=== PATIENT | male | born 1965 | race Caucasian/White ===

== ENCOUNTER 2016-07-13 10:44 | Inpatient (IN) | payer OTHER, MEDICAID ==
[2016-07-13] VITALS (7 sets, daily range): BP systolic 126–145; BP diastolic 70–81; PULSE 62–95; RESP 15–20; TEMP 97.7–98.9; O2SAT 98–99
[~2016-07-13] VITALS: Ht 180.3 cm; Wt 80.0 kg
[2016-07-13] MEDS ORDERED: SODIUM CHLOR 0.9% 1000 ML INJ 1,000 ML IV SCH (11:12)
[2016-07-13] MEDS ORDERED: MORPHINE SULFATE 4 MG/ML INJ IV PUSH ONE ×2 (11:15→13:30)
[2016-07-13] MEDS ORDERED: SODIUM CHLORIDE 0.9% FLUSH 5 ML FLUSH IVF PRN ×2 (11:15→15:15)
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
--- NOTE | 2016-07-13 11:47 | RADRPT ---
EXAM DATE/TIME: 07/13/2016 11:27 [facility] COMPARISON: No previous studies available for comparison. INDICATIONS : Short of breath. MEDICAL HISTORY : None. SURGICAL HISTORY : None. ENCOUNTER: Initial ACUITY: 1 day PAIN SCORE: 9/10 LOCATION: Bilateral lower chest FINDINGS: A single view of the chest demonstrates the lungs to be symmetrically aerated without evidence of mas s, infiltrate or effusion. The cardiomediastinal contours are unremarkable. There is probably an ac segundo right eighth rib fracture. Correlation suggested. CONCLUSION: Possible right eighth rib fracture, negative for pneumothorax. Curt Reed MD FACR on July 13, 2016 at 11:44 Board Certified Radiologist. This report was verified electronically.
[2016-07-13 11:50] LABS: AUTOMATED NEUTROPHIL # 6.6 TH/MM3 (1.8-7.7); BASOPHIL % 0.5 % (0.0-2.0); EOSINOPHIL % 0.3 % (0.0-4.0); HEMATOCRIT 39.1 % (39.0-51.0); HEMO FLAGS DIFF FINAL; LYMPH % 9.7 % (9.0-44.0); LYMPHOCYTE # 0.8 TH/MM3 (1.0-4.8); MEAN CELL VOLUME 92.9 FL (80.0-100.0); MEAN CORPUSCULAR HGB CONC 33.4 % (32.0-36.0); MONO % 5.7 % (0.0-8.0); NEUT % 83.8 % (16.0-70.0); PLATELET COUNT 185 TH/MM3 (150-450); RED CELL DISTRIBUTION WIDTH 13.7 % (11.6-17.2); WHITE BLOOD COUNT 7.9 TH/MM3 (4.0-11.0)
[2016-07-13 11:58] LABS: INTERNATIONAL NORMALIZED RATIO 1.1 RATIO; PROTHROMBIN TIME - PATIENT 11.9 SEC (9.8-11.6)
[2016-07-13 12:06] LABS: BICARBONATE 27.8 MEQ/L (21.0-32.0); POTASSIUM 3.8 MEQ/L (3.5-5.1)
[2016-07-13] MEDS ORDERED: IOHEXOL 350 MG/ML 10 ML VIAL (for RAD DIAG) IV ONE (12:34)
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
[2016-07-13] MEDS ORDERED: ONDANSETRON HCL 4 MG/2 ML VIAL IV PUSH ONE (13:30)
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
[2016-07-13] MEDS ORDERED: CHLORHEXIDINE GLUCONATE 2 % 1 PACK (2 CLOTHS) TOP PRN (15:15)
[2016-07-13] MEDS ORDERED: MISCELLANEOUS NURSING INFORMATION XX SCH (15:15)
[2016-07-13] MEDS ORDERED: SODIUM CHLORIDE 0.9% FLUSH 5 ML FLUSH IV FLUSH PRN (15:15)
[2016-07-13] MEDS ORDERED: ACETAMINOPHEN 325 MG TAB PO PRN (16:00)
[2016-07-13] MEDS ORDERED: RESP: ALBUTEROL 2.5 MG/IPRATROPIUM 0.5 MG NEB (SCH) INH (16:00)
[2016-07-13] MEDS ORDERED: RESP: ALBUTEROL 2.5 MG/IPRATROPIUM 0.5 MG NEB (PRN) INH (16:00)
[2016-07-13] MEDS ORDERED: ENALAPRILAT 1.25 MG/ML VIAL IV PRN (16:00)
[2016-07-13 16:02] LABS: BLOOD, URINE NEG (NEG); COMMENT (UR) CULT NOT INDICATED; CULTURE IF INDICATED CULT NOT INDICATED; GLUCOSE,URINE NEG (NEG); HYALINE CAST, URINE 1 /lpf (RARE); KETONE, URINE 40 mg/dL (NEG); NITRITE,URINE NEG (NEG); PH, URINE 7.5 (5.0-8.5); URINE COLOR YELLOW (YELLW/STRAW)
[2016-07-13] MEDS: METHOCARBAMOL 500 MG TAB PO SCH ×2 (16:27→22:00)
[2016-07-13] MEDS: SODIUM CHLOR 0.9% 1000 ML INJ 1,000 ML IV SCH (16:27)
[2016-07-13] MEDS: ACETAMINOPHEN 1000 MG/100 ML VIAL IV SCH ×2 (17:09→22:00)
[2016-07-13] MEDS: LIDOCAINE HCL 5% PATCH TD SCH (17:12)
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
[2016-07-13] MEDS: SODIUM CHLORIDE 0.9% FLUSH 5 ML FLUSH IV FLUSH SCH (21:00)
[2016-07-13] MEDS: DOCUSATE SODIUM 100 MG CAP PO SCH (21:00)
[2016-07-13] MEDS: REMOVE OLD PATCH T-DERMAL SCH (21:00)
[2016-07-13] MEDS: MAGNESIUM HYDROXIDE SUSP 30 ML CUP PO SCH (21:00)
[2016-07-13] MEDS: FAMOTIDINE 20 MG TAB PO SCH (21:00)
[2016-07-13] MEDS: HYDROmorphone HCL PF 1 MG/ML VIAL IV PUSH PRN (22:00)
[2016-07-13] MEDS: RESP: ALBUTEROL 2.5 MG/IPRATROPIUM 0.5 MG NEB (SCH) NEB ×2 (22:00→23:48)
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
[2016-07-14] VITALS (7 sets, daily range): BP systolic 129–144; BP diastolic 70–80; PULSE 56–66; RESP 12–18; TEMP 97.7–98.8; O2SAT 94–98
[2016-07-14] MEDS: HYDROmorphone HCL PF 1 MG/ML VIAL IV PUSH PRN ×6 (01:21→19:01)
[2016-07-14] MEDS: SODIUM CHLOR 0.9% 1000 ML INJ 1,000 ML IV SCH ×3 (02:00→20:27)
[2016-07-14] MEDS: RESP: ALBUTEROL 2.5 MG/IPRATROPIUM 0.5 MG NEB (SCH) NEB ×4 (03:25→19:44)
[2016-07-14] MEDS: CHLORHEXIDINE GLUCONATE 2 % 1 PACK (2 CLOTHS) TOP SCH (04:00)
[2016-07-14 04:01] LABS: AUTOMATED NEUTROPHIL # 8.2 TH/MM3 (1.8-7.7); BASOPHIL % 0.2 % (0.0-2.0); EOSINOPHIL % 0.5 % (0.0-4.0); HEMATOCRIT 34.7 % (39.0-51.0); HEMO FLAGS DIFF FINAL; LYMPH % 11.6 % (9.0-44.0); LYMPHOCYTE # 1.2 TH/MM3 (1.0-4.8); MEAN CELL VOLUME 93.2 FL (80.0-100.0); MEAN CORPUSCULAR HEMOGLOBIN 32.1 PG (27.0-34.0); MEAN CORPUSCULAR HGB CONC 34.4 % (32.0-36.0); MONO % 6.6 % (0.0-8.0); NEUT % 81.1 % (16.0-70.0); PLATELET COUNT 151 TH/MM3 (150-450); RED BLOOD COUNT 3.73 MIL/MM3 (4.50-5.90); RED CELL DISTRIBUTION WIDTH 13.4 % (11.6-17.2); WHITE BLOOD COUNT 10.1 TH/MM3 (4.0-11.0)
[2016-07-14 04:10] LABS: INTERNATIONAL NORMALIZED RATIO 1.1 RATIO
[2016-07-14 04:29] LABS: ANION GAP 8 MEQ/L (5-15); AST (GOT) 17 U/L (15-37); BICARBONATE 26.5 MEQ/L (21.0-32.0); BLOOD UREA NITROGEN 8 MG/DL (7-18); CHLORIDE 105 MEQ/L (98-107); GLOMERULAR FILTRATION RATE 98 ML/MIN (>89); POTASSIUM 3.7 MEQ/L (3.5-5.1); SODIUM (NA) 139 MEQ/L (136-145)
[2016-07-14 04:32] LABS: ALKALINE PHOSPHATASE 43 U/L (45-117); ALT (GPT) 22 U/L (12-78); CREATINE KINASE 363 U/L (39-308)
[2016-07-14] MEDS: ACETAMINOPHEN 1000 MG/100 ML VIAL IV SCH ×2 (05:32→13:29)
[2016-07-14] MEDS: METHOCARBAMOL 500 MG TAB PO SCH ×3 (05:33→20:24)
[2016-07-14 05:50] LABS: CKMB 1.9 NG/ML (0.5-3.6)
--- NOTE | 2016-07-14 06:33 | RADRPT ---
EXAM DATE/TIME: 07/14/2016 03:20 [facility] COMPARISON: CHEST SINGLE AP, July 13, 2016, 11:27. INDICATIONS : Post trauma. MEDICAL HISTORY : None. SURGICAL HISTORY : None. ENCOUNTER: Subsequent ACUITY: 2 days PAIN SCORE: Non-responsive. LOCATION: Bilateral chest FINDINGS: A single view of the chest demonstrates the lungs to be symmetrically aerated without evidence of mas s, infiltrate or effusion. The cardiomediastinal contours are unremarkable. Osseous structures are intact. CONCLUSION: 1. No acute findings. Mildly tortuous aorta. Minimal subsegmental atelectasis at the lung bases. Nathan Gomez MD on July 14, 2016 at 6:30 Board Certified Radiologist. This report was verified electronically.
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
[2016-07-14] MEDS: FAMOTIDINE 20 MG TAB PO SCH ×2 (08:22→20:24)
[2016-07-14] MEDS: SODIUM CHLORIDE 0.9% FLUSH 5 ML FLUSH IV FLUSH SCH ×2 (08:22→20:29)
[2016-07-14] MEDS: DOCUSATE SODIUM 100 MG CAP PO SCH ×2 (08:22→20:29)
[2016-07-14] MEDS: LIDOCAINE HCL 5% PATCH TD SCH (08:24)
[2016-07-14] MEDS: oxyCODONE/ACETAMINOPHEN 5 MG/325 MG TAB PO PRN ×2 (11:04→20:23)
[2016-07-14] MEDS: ONDANSETRON HCL 4 MG/2 ML VIAL IV PRN ×2 (11:16→19:01)
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
--- NOTE | 2016-07-14 18:11 | RADRPT ---
EXAM DATE/TIME: 07/14/2016 17:38 [facility] COMPARISON: No previous studies available for comparison. INDICATIONS : Trauma. Bilateral upper extremity numbness. MEDICAL HISTORY : None. SURGICAL HISTORY : Tonsillectomy. ENCOUNTER: Initial ACUITY: 2 day PAIN SCORE: 3/10 LOCATION: Paraspinal TECHNIQUE: Multiplanar, multisequence MRI examination of the cervical spine was performed. FINDINGS: VERTEBRAE: Normal vertebral body height. Homogeneous marrow signal. ALIGNMENT: No evidence of subluxation. CORD: Normal configuration and signal. POST FOSSA: The cerebellar tonsils are normal in position. C2-C3: The thecal sac has a normal configuration. There is no evidence of disc herniation or spinal canal s tenosis. The neural foramina are patent bilaterally. C3-C4: The thecal sac has a normal configuration. There is no evidence of disc herniation or spinal canal s tenosis. The neural foramina are patent bilaterally. C4-C5: Minimal broad-based protrusion abuts ventral thecal sac. No canal stenosis The neural foramina are pa tent bilaterally. C5-C6: Mild broad-based protrusion more eccentric to the left abuts the ventral thecal sac. Mild degree of c anal stenosis. There is moderate left-sided and mild right-sided neural foraminal narrowing. C6-C7: Mild broad-based protrusion abuts the ventral thecal sac. No canal stenosis. Severe left-sided and mo derate right-sided neural foraminal narrowing. The neural foramina are patent bilaterally. C7-T1: The thecal sac has a normal configuration. There is no evidence of disc herniation or spinal canal s tenosis. The neural foramina are patent bilaterally. CONCLUSION: 1. Minimal broad-based protrusion at C4-5 without canal stenosis. 2. Mild broad-based protrusion more eccentric to the left at C5-6 causing mild canal stenosis. 3. Mild broad-based protrusion at C6-7 without canal stenosis. 4. Uncovertebral spurring causing neural foraminal narrowing at C5-6 and C6-7 levels as described abo ve. Brock Moore MD on July 14, 2016 at 18:06 Board Certified Radiologist. This report was verified electronically.
--- NOTE | 2016-07-14 18:28 | RADRPT ---
EXAM DATE/TIME: 07/14/2016 17:38 [facility] COMPARISON: CT LUMBAR SPINE W/O CONTRAST, July 13, 2016, 11:58. INDICATIONS : L2 fracture involving the anterior posterior elements. MEDICAL HISTORY : None. SURGICAL HISTORY : Tonsillectomy. ENCOUNTER: Initial ACUITY: 2 day PAIN SCORE: 3/10 LOCATION: Paraspinal TECHNIQUE: There is a mild scoliosis. There are degenerative joint changes of the lower facets. FINDINGS: The most caudal appearing lumbar vertebra is numbered as L5. Again noted is a fracture deformity invo lving the L2 vertebral body with invagination of the superior endplate and fracture lines involving t he anterior portion of vertebral body. There is marrow edema extending to the upper half of the verte bral body. The vertebral bodies are intact. On the axial images there is an annular disc bulge at L1-2 with flattening the anterior thecal sac. T here is edema surrounding the L2 vertebral body with edema extending into both psoas muscles right gr eater than left. The subtle fractures seen on CT extending into both pedicles and involving the left transverse process are not well-visualized. There is minimal retropulsion of the posterior superior a spect of the L2 vertebral body. CONCLUSION: 1. Moderate compression fracture deformity of L2 again noted with mild retropulsion of the posterior superior aspect of the vertebral body. There is annular disc bulge at L1-2 with flattening of the the ana sac. The known extension into the pedicles and left transverse process are not well-visualized on MRI. Please see CT for further details. 2. No other vertebral fractures are identified. Justice Fabian MD on July 14, 2016 at 18:20 Board Certified Radiologist. This report was verified electronically.
[2016-07-14] MEDS: REMOVE OLD PATCH T-DERMAL SCH (20:29)
[2016-07-14] MEDS: MAGNESIUM HYDROXIDE SUSP 30 ML CUP PO SCH (20:29)
[2016-07-15] VITALS (8 sets, daily range): BP systolic 121–148; BP diastolic 66–84; PULSE 57–99; RESP 16–18; TEMP 97.7–99.7; O2SAT 95–99
[2016-07-15] MEDS: oxyCODONE/ACETAMINOPHEN 5 MG/325 MG TAB PO PRN ×5 (00:10→19:38)
[2016-07-15] MEDS: HYDROmorphone HCL PF 1 MG/ML VIAL IV PUSH PRN ×4 (03:07→23:22)
[2016-07-15] MEDS: ONDANSETRON HCL 4 MG/2 ML VIAL IV PRN ×2 (03:13→10:20)
[2016-07-15] MEDS: RESP: ALBUTEROL 2.5 MG/IPRATROPIUM 0.5 MG NEB (SCH) NEB ×4 (03:33→20:42)
[2016-07-15] MEDS: CHLORHEXIDINE GLUCONATE 2 % 1 PACK (2 CLOTHS) TOP SCH (04:00)
[2016-07-15] MEDS: METHOCARBAMOL 500 MG TAB PO SCH ×3 (04:41→19:37)
[2016-07-15 05:37] LABS: AUTOMATED NEUTROPHIL # 6.1 TH/MM3 (1.8-7.7); BASOPHIL % 0.4 % (0.0-2.0); EOSINOPHIL # 0.1 TH/MM3 (0-0.4); EOSINOPHIL % 1.4 % (0.0-4.0); HEMATOCRIT 33.7 % (39.0-51.0); HEMO FLAGS DIFF FINAL; LYMPH % 15.2 % (9.0-44.0); LYMPHOCYTE # 1.2 TH/MM3 (1.0-4.8); MEAN CELL VOLUME 93.5 FL (80.0-100.0); MEAN CORPUSCULAR HEMOGLOBIN 31.7 PG (27.0-34.0); MEAN CORPUSCULAR HGB CONC 33.9 % (32.0-36.0); PLATELET COUNT 136 TH/MM3 (150-450); RED BLOOD COUNT 3.61 MIL/MM3 (4.50-5.90); RED CELL DISTRIBUTION WIDTH 13.6 % (11.6-17.2); WHITE BLOOD COUNT 8.1 TH/MM3 (4.0-11.0)
--- NOTE | 2016-07-15 06:21 | RADRPT ---
EXAM DATE/TIME: 07/15/2016 05:43 [facility] COMPARISON: CHEST SINGLE AP, July 14, 2016, 3:20. INDICATIONS : Shortness of breath. MEDICAL HISTORY : None. SURGICAL HISTORY : None. ENCOUNTER: Subsequent ACUITY: 3 days PAIN SCORE: Non-responsive. LOCATION: Bilateral chest FINDINGS: A single view of the chest demonstrates minimal basilar dependent atelectasis. No effusion. No pneumo thorax. Remote right clavicle fracture. CONCLUSION: 1. Stable exam compared with July 14. Minimal basilar atelectasis. Nathan Gomez MD on July 15, 2016 at 6:19 Board Certified Radiologist. This report was verified electronically.
[2016-07-15 06:30] LABS: ALT (GPT) 19 U/L (12-78); ANION GAP 7 MEQ/L (5-15); AST (GOT) 13 U/L (15-37); BLOOD UREA NITROGEN 7 MG/DL (7-18); CHLORIDE 107 MEQ/L (98-107); GLOMERULAR FILTRATION RATE 98 ML/MIN (>89); POTASSIUM 3.9 MEQ/L (3.5-5.1); SODIUM (NA) 142 MEQ/L (136-145)
[2016-07-15 06:32] LABS: ALKALINE PHOSPHATASE 39 U/L (45-117); TOTAL BILIRUBIN ADULT 0.7 MG/DL (0.2-1.0)
[2016-07-15] MEDS: FAMOTIDINE 20 MG TAB PO SCH ×2 (07:40→19:38)
[2016-07-15] MEDS: DOCUSATE SODIUM 100 MG CAP PO SCH ×2 (07:40→19:38)
[2016-07-15] MEDS: LIDOCAINE HCL 5% PATCH TD SCH (07:42)
[2016-07-15] MEDS: SODIUM CHLOR 0.9% 1000 ML INJ 1,000 ML IV SCH ×2 (07:44→17:06)
[2016-07-15] MEDS: SODIUM CHLORIDE 0.9% FLUSH 5 ML FLUSH IV FLUSH SCH ×2 (07:48→19:42)
[2016-07-15] MEDS ORDERED: ZOFR4TAB3 SL (13:08)
[2016-07-15] MEDS ORDERED: MILKSUS PO (13:11)
[2016-07-15] MEDS ORDERED: DOCU1CAP39 PO (13:11)
[2016-07-15] MEDS ORDERED: METH500T3 PO (13:11)
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
[2016-07-15] MEDS ORDERED: WALKER WHEELS/F1 MIS (15:31)
[2016-07-15] MEDS ORDERED: PERC7.5T13 PO (16:53)
[2016-07-15] MEDS: MAGNESIUM HYDROXIDE SUSP 30 ML CUP PO SCH (19:40)
[2016-07-15] MEDS: REMOVE OLD PATCH T-DERMAL SCH (19:42)
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
[2016-07-16] MEDS: RESP: ALBUTEROL 2.5 MG/IPRATROPIUM 0.5 MG NEB (SCH) NEB (03:18)
[2016-07-16] MEDS: HYDROmorphone HCL PF 1 MG/ML VIAL IV PUSH PRN ×2 (03:27→08:15)
[2016-07-16] MEDS: SODIUM CHLOR 0.9% 1000 ML INJ 1,000 ML IV SCH (03:30)
[2016-07-16] MEDS: CHLORHEXIDINE GLUCONATE 2 % 1 PACK (2 CLOTHS) TOP SCH (03:32)
[2016-07-16] MEDS: METHOCARBAMOL 500 MG TAB PO SCH ×2 (04:54→05:06)
[2016-07-16] MEDS: oxyCODONE/ACETAMINOPHEN 5 MG/325 MG TAB PO PRN ×2 (04:59→09:13)
[2016-07-16 08:00] VITALS: BP 165/89; PULSE 86; RESP 16; TEMP 97; O2SAT 95
[2016-07-16] MEDS: ONDANSETRON HCL 4 MG/2 ML VIAL IV PRN (08:08)
[2016-07-16] MEDS: FAMOTIDINE 20 MG TAB PO SCH (08:09)
[2016-07-16] MEDS: DOCUSATE SODIUM 100 MG CAP PO SCH (08:09)
[2016-07-16] MEDS: LIDOCAINE HCL 5% PATCH TD SCH (08:10)
[2016-07-16] MEDS: SODIUM CHLORIDE 0.9% FLUSH 5 ML FLUSH IV FLUSH SCH (08:16)
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
== END 2016-07-16 09:30 | disposition home or self-care (01) | DRG 552 ==
LOC: NEPC 10:44 → NEDA 14:34 → N06A 17:26 → N03A 20:47 → N07B 07-14 11:08
PROVIDERS: ADMIT Surgery Trauma Surgery; ATTEND Surgery Trauma Surgery
DX: S32.022A Unstable burst fracture of second lumbar vertebra, initial encounter for closed fracture (principal); S27.322A Contusion of lung, bilateral, initial encounter; M41.9 Scoliosis, unspecified; V86.59XA Driver of other special all-terrain or other off-road motor vehicle injured in nontraffic accident, initial encounter; Y93.89 Activity, other specified; Y92.39 Other specified sports and athletic area as the place of occurrence of the external cause; Y99.0 Civilian activity done for income or pay; D64.89 Other specified anemias; Z82.49 Family history of ischemic heart disease and other diseases of the circulatory system; S22.41XD Multiple fractures of ribs, right side, subsequent encounter for fracture with routine healing
CPT/HCPCS: 70450; 71010; 71250; 72125; 72128; 72131; 72141; 72148; 74177; 80048; 80053; 81001; 82550; 82552; 83735; 84100; 85025; 85610; 85730; 94150; 94640; 94664; 96361; 96374; 96375; 96376; J0131; J1170; J2270; J2405; J7030; L0150; L0200; L0484; Q9967